=== PATIENT | male | born 1990 | race Hispanic/Latino ===

== ENCOUNTER 2017-09-20 00:51 | Emergency (ER) | payer SELFPAY ==
[2017-09-20] MEDS ORDERED: Ketorolac Tromethamine 30 MG/ML VIAL ONE (01:38)
--- NOTE | 2017-09-20 07:48 | RAD ---
THREE VIEWS RIGHT TOES: DATE: 09/20/17. COMPARISON: None. HISTORY: Trauma, pain, great toe injury. FINDINGS: Questionable nondisplaced fracture noted involving the mid shaft of 1st proximal phalanx on oblique i mage 2 of 3. No evidence for dislocation or intraarticular extension. IMPRESSION: Question subtle fracture deformity involving 1st proximal phalanx as above. POS: OFF
== END 2017-09-20 02:05 | disposition home or self-care (01) ==
LOC: ERS 00:51
DX: S90.111A Contusion of right great toe without damage to nail, initial encounter (principal); F17.210 Nicotine dependence, cigarettes, uncomplicated; W22.8XXA Striking against or struck by other objects, initial encounter
CPT/HCPCS: 96372; J1885